=== PATIENT | female | born 1965 | race Caucasian/White ===

== ENCOUNTER 2018-01-25 12:35 | Day surgery (SDC) | payer OTHER ==
[~2018-01-25] VITALS: Ht 165.1 cm; Wt 95.2 kg
[2018-01-25 12:53] VITALS: BP 140/77
[2018-01-25 17:30] VITALS: BP 150/80
== END 2018-01-25 17:05 | disposition home or self-care (01) ==
LOC: DS 12:35 → OR 14:30 → DS 14:30
PROVIDERS: Obstetrics & Gynecology
PROC: 0UDB8ZZ Extraction of Endometrium, Via Natural or Artificial Opening Endoscopic (ICD-10-PCS; 2018-01-25)
PROC: 0U5B8ZZ Destruction of Endometrium, Via Natural or Artificial Opening Endoscopic (ICD-10-PCS; principal; 2018-01-25 12:30)
DX: N95.0 Postmenopausal bleeding (principal); N84.0 Polyp of corpus uteri; I10 Essential (primary) hypertension; E66.9 Obesity, unspecified; Z68.35 Body mass index [BMI] 35.0-35.9, adult; Z98.51 Tubal ligation status
CPT/HCPCS: J2175; J2250; J2405; J2704; J3010; J7120

== ENCOUNTER 2018-08-07 06:03 | Inpatient (IN) | payer OTHER ==
[~2018-08-07] VITALS: Ht 165.1 cm; Wt 49.9 kg
[2018-08-07 06:17] VITALS: BP 136/90
--- NOTE | 2018-08-07 10:55 | NUR ---
RECEIVED THE PATIENT FROM OR DEPT S/P HYSTERECTOMY. THE PATIENT WAS DROWSY BUT AROUSABLE WITH VERBAL STIMULUS AND ORIENTED TO PERSON AND PLACE. PATIENT DENIED NAUSEA/VOMITING OR SHORTNESS OF BREATH. PATIENT STATED HAVING SHARP PAIN 3/10 AT INCISIONAL SITE AT LOWER ABDOMEN, BUT TOLERATED WITH THE PAIN (DILAUDID 4MG IVP WAS GIVEN IN PACU PER REPORT). CONTINUE TO MONITOR AND MEDICATE FOR PAIN PRN. SL TO LEFT HAND. INCISION TO LOWER ABDOMEN WITH DRESSING INTACT. ABDOMINAL BINDER IN PLACE. LANCASTER CATH TO GRAVITY DRAINING YELLOW UIRNE. REORIENTED PATIENT TO ROOM AND EQUIPMENT. VS CHECKED. ADMISSION ASSESSMENT WAS IMPLEMENTED. CALL LIGHT WITHIN REACH. SIDE RAILS UP X3. BED WAS AT LOWEST POSITION. THE FAMILY MEMBERS INCLUDING DAUGHTER, KAMALA GASCA AT BEDSIDE WITH THE PATIENT.
[2018-08-07 11:23] VITALS: BP 145/68
--- NOTE | 2018-08-07 12:59 | NUR ---
THE PATIENT C/O NAUSEA AFTER HAVING LUNCH WITH CLEAR LIQUID DIET. ZOFRAN 4MG IVP WAS MEDICATED TO THE PATIENT. CONTINUE TO MONITOR.
--- NOTE | 2018-08-07 15:05 | NUR ---
AT 1445: THE PATIENT C/O SHARP PAIN TO SURGICAL SITE AT LOWER ABDOMEN 7/10; MORPHINE 4MG IVP WAS MEDICATED TO THE PATIENT. AT 1505: REASSESSING THE PAIN; THE PATIENT STATED THE PAIN WAS MUCH BETTER 2/10 AND TOLERABLE AT THIS TIME.
[2018-08-07 16:45] VITALS: BP 154/77
--- NOTE | 2018-08-07 18:49 | NUR ---
THE PATIENT TOLERATED WELL WITH CLEAR LIQUID FOR DINNER WITHOUT C/O NAUSEA OR ABDOMINAL S/P SURGERY. THE PATIENT HAD SMALL AMOUNT OF VAGINAL BLEEDING. PATIENT WAS CLEANSED. DR. OBED HUFF WAS PAGED. AWAITING FOR REPLY.
--- NOTE | 2018-08-07 19:30 | NUR ---
RECIEVED PATIENT AT START OF SHIFT AWAKE, A/O X4. NO SOB ON ROOM AIR. PATIENT COMPLAINING OF 4/10 PAIN TO HER ABDOMINAL INCISIONS. WILL MEDICATE PER EMAR. ABDOMINAL DRESSING CLEAN DRY AND INTACT, ABDOMINAL BINDER IN PLACE. PATIENT IS HAVING VERY MINIMAL VAGINAL BLEEDING. SMALL AMOUNT OF DRIED BLOOD FOUND AROUND VAGINAL LIPS. LANCASTER DRAINING CLEAR YELLOW URINE. IV INTACT INFUSING FLUIDS WITHOUT REDNESS OR EDEMA. THE DAY NURSE REPORTED TO ME THAT THE PATIENT USUALLY TAKES LOSARTAN 50 MG I THE MORNING AND 25 MG METROPOLOL AT NIGHT. LAST BP WAS 154/77. DR HUFF WAS PAGED SO WE CAN GET THOSE MEDS ADDED TO HER MEDICATION REGIMEN. PATIENT IS ALSO REQUESTING A SLEEPING PILL. BED LOCKED AND IN LOWEST POSITION. CALL LIGHT AND BEDSIDE TABLE WITHIN REACH. WILL CONTINUE TO MONITOR.
[2018-08-07] MEDS ORDERED: LOSARTAN POTASS50 M1 PO (19:55)
[2018-08-07] MEDS ORDERED: TOPROL XL25 MG PO (20:01)
[2018-08-07 21:15] VITALS: BP 140/66
--- NOTE | 2018-08-08 01:26 | NUR ---
PATIENT'S EYES ARE CLOSED, BREATHS ARE EVEN AND REGULAR. NO SIGNS OF DISTRESS. WILL CONTINUE TO MONITOR.
[2018-08-08 06:26] VITALS: BP 148/84
--- NOTE | 2018-08-08 06:32 | NUR ---
NO SIGNIFICANT CHANGES THIS SHIFT. DR. HUFF NEVER RESPONDED TO PAGE REGARDING PATIENT'S HOME BP MEDICATIONS. WILL ENDORSE CARE TO MORNING NURSE.
[2018-08-08 06:48] LABS: BASOPHIL % 0.1 % (0-2); PLATELET COUNT 164 x10^3mcL (130-400); RED CELL DISTRIBUTION WIDTH 12.4 % (11.5-14.5)
[2018-08-08 08:30] VITALS: BP 149/72
[2018-08-08 12:33] VITALS: BP 149/72
--- NOTE | 2018-08-08 12:50 | NUR ---
per dr. cross. d/c pt at [address] [facility]. d/c betty and given matias x1
--- NOTE | 2018-08-08 13:01 | NUR ---
F/C HAS BEEN D/C. PER 'S ORDER
--- NOTE | 2018-08-08 14:49 | NUR ---
PT AMBUALTED TO THE BATHROOM WITH LITTLE ASSISTANCE
[2018-08-08 17:47] VITALS: BP 141/51
== END 2018-08-08 17:30 | disposition home or self-care (01) | DRG 513 ==
LOC: MU 06:03
PROVIDERS: ADMIT Obstetrics & Gynecology
PROC: 0UT20ZZ Resection of Bilateral Ovaries, Open Approach (ICD-10-PCS; 2018-08-07)
PROC: 0UT70ZZ Resection of Bilateral Fallopian Tubes, Open Approach (ICD-10-PCS; 2018-08-07)
PROC: 0UT90ZZ Resection of Uterus, Open Approach (ICD-10-PCS; principal; 2018-08-07 07:30)
DX: N95.0 Postmenopausal bleeding (principal)
CPT/HCPCS: J0330; J0690; J1170; J2250; J2270; J2405; J2704; J2710; J3010; J3490; J7120